=== PATIENT | female | born 1945 | race African-American/Black ===

== ENCOUNTER 2017-11-07 08:27 | Emergency (ER) | payer OTHER ==
[~2017-11-07] VITALS: Ht 157.5 cm; Wt 101.1 kg
[~2017-11-07 08:27] MED LIST: ASPIR 8181 M1 PO; DIOVAN320 MG PO; SIMVASTATIN20 M1 PO; SYNTHROID100 MCG PO
[2017-11-07] MEDS ORDERED: DIOVAN HCT 31 TABLE1 PO (09:33)
[2017-11-07] MEDS ORDERED: AMLODIPINE BESYL5 MG PO (09:33)
[2017-11-07 10:06] LABS: HEMATOCRIT 36.7 % (36.0-46.0); MCH 27.6 PG (29.0-34.0); MCHC 32.2 G/DL (30.0-36.0); MCV 85.7 FL (83-99); MEAN PLAT.VOLUME 8.9 uM^3 (9.5-12.4); PLATELET COUNT 383 K/uL (156-360); RBC DIS.WIDTH-CV 15.2 % (11.8-14.6); RBC DIS.WIDTH-SD 47.2 % (39-53); RED BLOOD COUNT 4.28 M/uL (3.80-5.20); WHITE BLOOD COUNT 13.3 K/uL (4.1-10.2)
[2017-11-07 10:11] LABS: INTER. NORMALIZED RATIO 1.1; PROTHROMBIN TIME 12.1 SEC (10.2-12.9)
[2017-11-07 10:13] LABS: PTT 27.4 SEC (25-37)
[2017-11-07 10:16] LABS: CHLORIDE 102 mEq/L (99-109); POTASSIUM 3.9 mEq/L (3.7-5.4); SODIUM 139 mEq/L (136-147)
[2017-11-07 10:18] LABS: GLUCOSE 106 mg/dL (70-99)
[2017-11-07 10:20] LABS: ANION GAP 10 MEQ/L (2-14)
[2017-11-07 10:22] LABS: GFR ESTIMATE (CALCULATED) 38 mL/min/
[2017-11-07 10:23] LABS: UREA NITROGEN (BUN) 18 mg/dL (9-23)
[2017-11-07 10:30] LABS: TROP-I INTERPRETATION NEGATIVE; TROPONIN-I < 0.01 ng/mL (0.0-0.30)
[2017-11-07 11:02] LABS: BASOPHIL COUNT 0.1 K/uL (0-0.1); EOSINOPHIL (%) 3.3 % (0-5); EOSINOPHIL COUNT 0.4 K/uL (0-0.3); HEMATOLOGY COMMENT 1 SMEAR COMPATIBLE; IMMATURE GRANULOCYTE (%) 0.4 % (0.0-0.7); IMMATURE GRANULOCYTE COUNT 0.1 K/uL; INSTRUMENT ABS NEUTROPHIL CT 4.3 K/uL; LYMPHOCYTE COUNT 7.6 K/uL (1.0-2.8); MONOCYTE (%) 5.8 % (3-12); MONOCYTE COUNT 0.8 K/uL (0-0.8); NEUTROPHIL (%) 32.5 % (45-76); NEUTROPHIL COUNT 4.3 K/uL (1.8-6.4)
[2017-11-07 13:33] LABS: TROP-I INTERPRETATION NEGATIVE; TROPONIN-I < 0.01 ng/mL (0.0-0.30)
[2017-11-07] MEDS ORDERED: PERCOCET 5/31 TABLET PO (13:43)
[2017-11-07 13:55] VITALS: BP 120/63
== END 2017-11-07 13:56 | disposition home or self-care (01) ==
LOC: EME 08:27
PROVIDERS: Emergency Medicine
DX: R07.89 Other chest pain (principal); M79.602 Pain in left arm; B02.29 Other postherpetic nervous system involvement; I12.9 Hypertensive chronic kidney disease with stage 1 through stage 4 chronic kidney disease, or unspecified chronic kidney disease; N18.9 Chronic kidney disease, unspecified; Z85.72 Personal history of non-Hodgkin lymphomas; Z79.82 Long term (current) use of aspirin
CPT/HCPCS: 70450; 71010; 80048; 84484; 85025; 85610; 85730; 93005; 99281; 99284